=== PATIENT | female | born 1960 | race American Indian/Alaskan Native ===

== ENCOUNTER 2018-12-09 18:27 | Outpatient (CLI) | payer OTHER | END 2018-12-09 18:28 | disposition home or self-care (01) | LOC: C.SLEEP 18:27 | DX: G47.33 Obstructive sleep apnea (adult) (pediatric) (principal); I10 Essential (primary) hypertension; R73.03 Prediabetes; Z68.41 Body mass index [BMI] 40.0-44.9, adult; Z12.31 Encounter for screening mammogram for malignant neoplasm of breast ==